=== PATIENT | male | born 1970 | race American Indian/Alaskan Native ===

== ENCOUNTER 2018-08-20 12:48 | Emergency (ER) | payer SELFPAY ==
[2018-08-20 13:38] LABS: Basophils % (Auto) 0.5 % (0.0-1.8); Eosinophils # (Auto) 0.1 K/mm3 (0.0-0.4); Eosinophils % (Auto) 1.5 % (0.0-4.3); Hematocrit 48.6 % (35.5-45.6); Lymphocytes # (Auto) 1.8 K/mm3 (1.2-5.4); Lymphocytes % (Auto) 24.1 % (13.4-35.0); Mean Corpuscular HGB Conc 35 % (32-34); Mean Corpuscular Volume 87 fl (84-94); Monocytes # (Auto) 0.6 K/mm3 (0.0-0.8); Monocytes % (Auto) 7.5 % (0.0-7.3); Platelet Count 275 K/mm3 (140-440); Red Blood Count 5.57 M/mm3 (3.65-5.03); Red Cell Distribution Width 12.9 % (13.2-15.2)
[2018-08-20 13:58] LABS: Creatine Kinase MB 1.5 ng/mL (0.0-4.0)
[2018-08-20 13:59] LABS: BUN/Creatinine Ratio 18; Blood Urea Nitrogen 16 mg/dL (9-20); Calcium 9.9 mg/dL (8.4-10.2); Hemolysis Index 10
[2018-08-20] MEDS ORDERED: HumuLIN R IV ONE (14:16)
[2018-08-20] MEDS ORDERED: NACL 0.9% 500 ML 500 ML IV ONE (14:43)
--- NOTE | 2018-08-20 14:59 | Emergency Department Report ---
ED General Adult HPI - General Chief complaint: High BP Stated complaint: N/V LEG CRAMPS/HBP Time Seen by Provider: 08/20/18 13:18 Source: patient Mode of arrival: Ambulatory Limitations: No Limitations - History of Present Illness Initial comments: 48-year-old male with a past medical history of known asthma. Diabetes, hypertension, atrial fibrillation, and hyperlipidemia presents for Hospital complaints of elevated blood pressure. Patient been noncompliant with all his medication for the last 6 months. Since Wednesday he has been experiencing d izziness, nausea, a cramps, intermittent heart fluttering. He took his blood pressure and it was elevated and he has been checking it daily only since Wednesday. He has some leftover metoprolol 50 mg XL which was originally prescribed once a day. He has been taking it on average of twice a day since Wednesday and he took 2 doses at once this a.m. Patient also had an intermittent 6/10 headache or tablets head with mild nausea. Denies vomiting, chest pain, neck pain, blurry vision, focal weakness or numbness. Patient has been on Plavix in the past but denies anticoagulant use. - Related Data Previous Rx's Medication Instructions Recorded Last Taken Type Insulin NPH/Regular [Novolin 70/30] 5 unit SQ BIDDIAB #1 vial 08/20/18 Unknown Rx Lisinopril [Zestril TAB] 10 mg PO QDAY #30 tablet 08/20/18 Unknown Rx Metoprolol Xl [Metoprolol 50 mg PO QDAY #30 tablet 08/20/18 Unknown Rx SUCCINATE ER TAB] Syringe-Needle,Insulin,0.5 ml 1 each MC BID 30 Days #1 box 08/20/18 Unknown Rx [Insulin Syringe/Needle 0.5 ML] Allergies Allergy/AdvReac Type Severity Reaction Status Date / Time No Known Allergies Allergy Unverified 08/20/18 13:00 ED Review of Systems ROS: Stated complaint: N/V LEG CRAMPS/HBP Other details as noted in HPI Comment: All other systems reviewed and negative ED Past Medical Hx - Past Medical History Previous Medical History?: Yes Hx Hypertension: Yes Hx Diabetes: Yes Additional medical history: A-fib, hyperlipidemia - Surgical History Past Surgical History?: Yes Additional Surgical History: vasectomy, 2008. sx to 5th digit L hand - Social History Smoking Status: Never Smoker Substance Use Type: None - Medications Home Medications: Home Medications Medication Instructions Recorded Confirmed Last Taken Type Insulin NPH/Regular [Novolin 70/30] 5 unit SQ BIDDIAB #1 vial 08/20/18 Unknown Rx Lisinopril [Zestril TAB] 10 mg PO QDAY #30 tablet 08/20/18 Unknown Rx Metoprolol Xl [Metoprolol 50 mg PO QDAY #30 tablet 08/20/18 Unknown Rx SUCCINATE ER TAB] Syringe-Needle,Insulin,0.5 ml 1 each MC BID 30 Days #1 box 08/20/18 Unknown Rx [Insulin Syringe/Needle 0.5 ML] ED Physical Exam - General Limitations: No Limitations - Other Other exam information: General: No limitations, patient is alert in no acute distress Head exam: Atraumatic, normocephalic Eyes exam: Normal appearance, pupils equal reactive to light, extraocular movements intact ENT: Moist mucous membrane, normal oropharynx Neck exam: Normal inspection, full range of motion, no meningismus nontender Respiratory exam: Clear to auscultation bilateral, no wheezes, rales, crackles Cardiovascular: Normal rate and rhythm, normal heart sounds Abdomen: Soft, nondistended, and nontender, with normal bowel sounds, no rebound, or guarding Extremity: Full range of motion normal inspection no deformity Back: Normal Inspection, full range of motion, no tenderness Neurologic: Alert, oriented x3, cranial nerves intact, no motor or sensory deficit Psychiatric: normal affect, normal mood Skin: Warm, dry, intact ED Course Vital Signs 08/20/18 08/20/18 08/20/18 13:00 13:43 13:45 Temperature 98.2 F Pulse Rate 99 H 84 Respiratory 18 14 Rate Blood Pressure 161/100 143/84 O2 Sat by Pulse 96 97 97 Oximetry 08/20/18 08/20/18 08/20/18 14:00 14:30 15:00 Temperature Pulse Rate 82 82 71 Respiratory 15 12 15 Rate Blood Pressure 133/81 133/81 140/80 O2 Sat by Pulse 96 95 98 Oximetry 08/20/18 08/20/18 08/20/18 15:30 16:00 16:30 Temperature Pulse Rate 99 H 77 79 Respiratory 23 13 13 Rate Blood Pressure 140/80 142/94 142/94 O2 Sat by Pulse 97 96 95 Oximetry 08/20/18 08/20/18 17:00 17:30 Temperature Pulse Rate 76 78 Respiratory 12 13 Rate Blood Pressure 150/99 150/99 O2 Sat by Pulse 96 95 Oximetry - Reevaluation(s) Reevaluation #1: 08/20/18 18:00 Patient was treated with insulin and normal saline and reports feeling better. ED Medical Decision Making - Lab Data Result diagrams: 08/20/18 13:33 08/20/18 13:33 Lab Results 08/20/18 08/20/18 08/20/18 Range/Units 13:33 13:33 13:52 WBC 7.5 (4.5-11.0) K/mm3 RBC 5.57 H (3.65-5.03) M/mm3 Hgb 17.0 H (11.8-15.2) gm/dl Hct 48.6 H (35.5-45.6) % MCV 87 (84-94) fl MCH 31 (28-32) pg MCHC 35 H (32-34) % RDW 12.9 L (13.2-15.2) % Plt Count 275 (140-440) K/mm3 Lymph % (Auto) 24.1 (13.4-35.0) % [place] % (Auto) 7.5 H (0.0-7.3) % Eos % (Auto) 1.5 (0.0-4.3) % Baso % (Auto) 0.5 (0.0-1.8) % Lymph # 1.8 (1.2-5.4) K/mm3 [place] # 0.6 (0.0-0.8) K/mm3 Eos # 0.1 (0.0-0.4) K/mm3 Baso # 0.0 (0.0-0.1) K/mm3 Seg Neutrophils % 66.4 (40.0-70.0) % Seg Neutrophils # 5.0 (1.8-7.7) K/mm3 Sodium 139 (137-145) mmol/L Potassium 5.1 H (3.6-5.0) mmol/L Chloride 100.2 (98-107) mmol/L Carbon Dioxide 25 (22-30) mmol/L Anion Gap 19 mmol/L BUN 16 (9-20) mg/dL Creatinine 0.9 (0.8-1.5) mg/dL Estimated GFR > 60 ml/min BUN/Creatinine Ratio 18 % Glucose 373 H (75-100) mg/dL POC Glucose 255 H (70-105) Calcium 9.9 (8.4-10.2) mg/dL Magnesium 2.40 H (1.7-2.3) mg/dL Total Creatine Kinase 93 (55-170) units/L CK-MB (CK-2) 1.5 (0.0-4.0) ng/mL CK-MB (CK-2) Rel Index 1.6 (0-4) Troponin T < 0.010 (0.00-0.029) ng/mL 08/20/18 Range/Units 15:44 WBC (4.5-11.0) K/mm3 RBC (3.65-5.03) M/mm3 Hgb (11.8-15.2) gm/dl Hct (35.5-45.6) % MCV (84-94) fl MCH (28-32) pg MCHC (32-34) % RDW (13.2-15.2) % Plt Count (140-440) K/mm3 Lymph % (Auto) (13.4-35.0) % [place] % (Auto) (0.0-7.3) % Eos % (Auto) (0.0-4.3) % Baso % (Auto) (0.0-1.8) % Lymph # (1.2-5.4) K/mm3 [place] # (0.0-0.8) K/mm3 Eos # (0.0-0.4) K/mm3 Baso # (0.0-0.1) K/mm3 Seg Neutrophils % (40.0-70.0) % Seg Neutrophils # (1.8-7.7) K/mm3 Sodium (137-145) mmol/L Potassium (3.6-5.0) mmol/L Chloride (98-107) mmol/L Carbon Dioxide (22-30) mmol/L Anion Gap mmol/L BUN (9-20) mg/dL Creatinine (0.8-1.5) mg/dL Estimated GFR ml/min BUN/Creatinine Ratio % Glucose (75-100) mg/dL POC Glucose 149 H (70-105) Calcium (8.4-10.2) mg/dL Magnesium (1.7-2.3) mg/dL Total Creatine Kinase (55-170) units/L CK-MB (CK-2) (0.0-4.0) ng/mL CK-MB (CK-2) Rel Index (0-4) Troponin T (0.00-0.029) ng/mL - EKG Data -: EKG Interpreted by Me EKG shows normal: sinus rhythm, axis (qrs -39), QRS complexes (qrsd 90), ST-T waves (no stemi) Rate: normal - Medical Decision Making Patient's blood pressure improved without additional meds in the ED. Glucose improved after insulin. Hospitalist consult appreciated in patient's diet or insulin, lisinopril, and I will also refill patient's metoprolol. Encouraged and counseled on compliance and moderate saying his blood pressure and glucose levels for and the importance of follow-up - Differential Diagnosis hypertensive emergency, hyperglycemia, medication noncompliance, Critical Care Time: No Critical care attestation.: If time is entered above; I have spent that time in minutes in the direct care of this critically ill patient, excluding procedure time. ED Disposition Clinical Impression: Diabetes, Noncompliance with medication regimen HTN (hypertension) Qualifiers: Hypertension type: essential hypertension Qualified Code(s): I10 - Essential (primary) hypertension Disposition: - TO HOME OR SELFCARE Is pt being admited?: No Does the pt Need Aspirin: No Condition: Stable Instructions: Hypertension (ED), Diabetes Mellitus Type 2 in Adults (ED) Additional Instructions: Take the medication as prescribed. Follow up with your doctor or the doctor/clinic provided. Return if symptoms worsen as indicated by your discharge instructions Prescriptions: Insulin NPH/Regular [Novolin 70/30] 5 unit SQ BIDDIAB #1 vial Lisinopril [Zestril TAB] 10 mg PO QDAY #30 tablet Metoprolol Xl [Metoprolol SUCCINATE ER TAB] 50 mg PO QDAY #30 tablet Syringe-Needle,Insulin,0.5 ml [Insulin Syringe/Needle 0.5 ML] 1 each MC BID 30 Days #1 box Referrals: AMY PAVON MD [Primary Care Provider] - 3-5 Days [facility] [Provider Group] - 3-5 Days Time of Disposition: 18:00
--- NOTE | 2018-08-20 17:49 | Consultation ---
History of Present Illness - Reason for Consult Consult date: 08/20/18 Requesting physician: TOBIN ARANDA - History of Present Illness 48 YO Male with DM, HTN, Atrial Fib not on therapeutic Anticoagulation currently in Normal Sinus Rhythm, HLD, Medication Noncompliance presents to ED for evaluation. Pt seen and evaluated in ED and found to have Uncontrolled DM. Cons ult placed for HTN, DM. Pt denies fever, chills, CP, palpitations, shortness of breath or recent ill contacts. Pt counseled regarding medication and dietary compliance. Pt acknowledges understanding instructions. Pt medically optimized and back to usual state of health. Past History Past Medical History: diabetes, hypertension Past Surgical History: Other (Left hand surgery) Social history: , lives with family. denies: smoking, alcohol abuse, prescription drug abuse Family history: diabetes, hypertension Medications and Allergies Allergies Allergy/AdvReac Type Severity Reaction Status Date / Time No Known Allergies Allergy Unverified 08/20/18 13:00 Home Medications Medication Instructions Recorded Confirmed Last Taken Type Insulin NPH/Regular [Novolin 70/30] 5 unit SQ BIDDIAB #1 vial 08/20/18 Unknown Rx Lisinopril [Zestril TAB] 10 mg PO QDAY #30 tablet 08/20/18 Unknown Rx Syringe-Needle,Insulin,0.5 ml 1 each MC BID 30 Days #1 box 08/20/18 Unknown Rx [Insulin Syringe/Needle 0.5 ML] Review of Systems Constitutional: no weight loss, no weight gain, no fever, no chills Ears, nose, mouth and throat: no ear pain, no ear discharge, no tinnitis, no decreased hearing, no nose pain, no nasal congestion Cardiovascular: no chest pain, no orthopnea, no palpitations, no rapid/irregular heart beat, no edema Respiratory: no cough, no cough with sputum, no excessive sputum, no hemoptysis Gastrointestinal: nausea, no vomiting, no diarrhea, no constipation Genitourinary Male: no hematuria, no flank pain, no discharge, no urinary frequency, no urinary hesitancy Rectal: no pain, no incontinence, no bleeding Musculoskeletal: no neck stiffness, no neck pain, no shooting arm pain, no arm numbness/tingling, no low back pain Integumentary: no rash, no pruritis, no redness Neurological: no head injury, no paralysis, no weakness, no parathesias, no tingling, no syncope Psychiatric: no anxiety, no change in sleep habits, no hypersomnia, no change in appetite, no change in libido, no suicidal ideation Endocrine: no cold intolerance, no heat intolerance, no polyphagia, no excessive thirst, no polyuria Hematologic/Lymphatic: no easy bruising, no easy bleeding, no lymphadenopathy, no lymphedema Allergic/Immunologic: no urticaria, no allergic rhinitis, no wheezing, no persistent infections, no anaphylaxis, no angioedema Exam - Constitutional Vitals: Temp Pulse Resp BP Pulse Ox 98.2 F 82 15 133/81 96 08/20/18 13:00 08/20/18 14:00 08/20/18 14:00 08/20/18 14:00 08/20/18 14:00 General appearance: Present: no acute distress, well-nourished - EENT Eyes: Present: PERRL ENT: hearing intact, clear oral mucosa - Neck Neck: Present: supple, normal ROM - Respiratory Respiratory effort: normal Respiratory: bilateral: CTA - Cardiovascular Heart Sounds: Present: S1 & S2. Absent: rub, click - Extremities Extremities: pulses symmetrical, No edema Peripheral Pulses: within normal limits - Abdominal General gastrointestinal: Present: soft, non-tender, non-distended, normal bowel sounds Male genitourinary: Present: normal - Integumentary Integumentary: Present: clear, warm, dry - Musculoskeletal Musculoskeletal: gait normal, strength equal bilaterally - Psychiatric Psychiatric: appropriate mood/affect, intact judgment & insight - Neurologic Neurologic: CNII-XII intact, moves all extremities Results - Labs CBC & Chem 7: 08/20/18 13:33 08/20/18 13:33 Labs: Abnormal lab results 08/20/18 08/20/18 08/20/18 Range/Units 13:33 13:33 13:52 RBC 5.57 H (3.65-5.03) M/mm3 Hgb 17.0 H (11.8-15.2) gm/dl Hct 48.6 H (35.5-45.6) % MCHC 35 H (32-34) % RDW 12.9 L (13.2-15.2) % [place] % (Auto) 7.5 H (0.0-7.3) % Potassium 5.1 H (3.6-5.0) mmol/L Glucose 373 H (75-100) mg/dL POC Glucose 255 H (70-105) Magnesium 2.40 H (1.7-2.3) mg/dL 08/20/18 Range/Units 15:44 RBC (3.65-5.03) M/mm3 Hgb (11.8-15.2) gm/dl Hct (35.5-45.6) % MCHC (32-34) % RDW (13.2-15.2) % [place] % (Auto) (0.0-7.3) % Potassium (3.6-5.0) mmol/L Glucose (75-100) mg/dL POC Glucose 149 H (70-105) Magnesium (1.7-2.3) mg/dL Assessment and Plan - Patient Problems (1) HTN (hypertension) Current Visit: Yes Status: Acute Qualifiers: Hypertension type: essential hypertension Qualified Code(s): I10 - Essential (primary) hypertension Plan to address problem: Lisinopril 10mg PO daily, daily Blood pressure log, continue metoprolol, F/U pcp 1wk with blood pressure log (2) Diabetes Current Visit: Yes Status: Acute Plan to address problem: Consistent Carbohydrate diet, insulin, accu check, blood glucose log TID, f/u p cp 1 wk with blood glucose log.
[2018-08-20 17:57] VITALS: BP 150/99
== END 2018-08-20 18:32 | disposition home or self-care (01) ==
LOC: ED 12:48
DX: I10 Essential (primary) hypertension (principal); E11.9 Type 2 diabetes mellitus without complications; I48.91 Unspecified atrial fibrillation; E78.00 Pure hypercholesterolemia, unspecified
CPT/HCPCS: 36415; 80048; 82550; 82553; 82962; 83735; 84484; 85025; 93005; 93010; 96361; 96374; 99283; J7040; J1815